=== PATIENT | female | born 1995 | race Caucasian/White ===

== ENCOUNTER → 2023-11-13 | Outpatient (REF) | payer OTHER | LOC: M SFHCWAGY 13:03 | PROVIDERS: ATTEND Nurse Practitioner Family | DX: Z12.4 Encounter for screening for malignant neoplasm of cervix (principal) ==

== ENCOUNTER 2024-02-05 16:28 | Inpatient (IN) | payer OTHER ==
[~2024-02-05] VITALS: Ht 170.2 cm; Wt 66.4 kg
[2024-02-05 17:47] LABS: BASO # 0.1 10^3/uL (0.0-0.2); EOS % 0.4 % (0.0-3.0); HEMATOCRIT 43.4 % (36.0-47.0); HEMOGLOBIN 14.7 g/dl (12.0-15.5); LYMPH # 2.8 10^3/uL (1.5-5.0); MEAN CORPUSCULAR HEMOGLOBIN 29.1 pg (27.0-33.0); MEAN CORPUSCULAR HGB CONC 33.9 g/dl (32.0-36.5); MEAN CORPUSCULAR VOLUME 85.8 fl (80.0-96.0); MONO # 0.9 10^3/uL (0.0-0.8); MONO % 10.2 % (2.0-8.0); NEUTROPHILS # 5.1 10^3/uL (1.5-8.5); NEUTROPHILS % 57.3 % (36.0-66.0); PLATELET COUNT, AUTOMATED 317 10^3/uL (150-450); RED BLOOD COUNT 5.06 10^6/uL (4.00-5.40); WHITE BLOOD COUNT 8.9 10^3/uL (4.0-10.0)
[2024-02-05 18:08] LABS: CK-MB VALUE MASS < 1.0 NG/ML (<3.6); ETHYL ALCOHOL (ETHANOL) < 0.003 % (0.000-0.010)
[2024-02-05 18:10] LABS: ALBUMIN 4.6 G/DL (3.2-5.2); ALKALINE PHOSPHATASE 77 U/L (46-116); ALT/SGPT 13 U/L (7.0-40); AST/SGOT 13 U/L (<34); BILIRUBIN,DIRECT 0.7 MG/DL (<0.4); BILIRUBIN,TOTAL 1.9 MG/DL (0.3-1.2); BLOOD UREA NITROGEN 10 MG/DL (9-23); CALCIUM LEVEL 9.5 MG/DL (8.5-10.1); CARBON DIOXIDE LEVEL 25 MMOL/L (20-31); CHLORIDE LEVEL 106 MMOL/L (98-107); CPK CREATINE PHOSPHOKINASE 114 U/L (34-145); CREATININE FOR GFR 0.84 MG/DL (0.55-1.30); GLOMERULAR FILTRATION RATE > 60.0 (>60); GLUCOSE, FASTING 102 MG/DL (60-100); MB/CK RELATIVE INDEX 0.87 (< OR =4); POTASSIUM SERUM 4.2 MMOL/L (3.5-5.1); SALICYLATE LEVEL < 3.0 MG/DL (<30); SODIUM LEVEL 141 MMOL/L (136-145); TOTAL PROTEIN 7.9 G/DL (5.7-8.2)
[2024-02-05 18:11] LABS: THYROID STIMULATING HORMONE 2.393 uIU/ML (0.55-4.78)
[2024-02-05 18:16] LABS: HCG, SERUM QUALITATIVE NEGATIVE (NEGATIVE)
[2024-02-05 18:18] LABS: AMPHETAMINES LEVEL URINE NEGATIVE (NEGATIVE); COCAINE METABOLITE URINE NEGATIVE (NEGATIVE)
[2024-02-05 18:19] LABS: BARBITURATES URINE NEGATIVE (NEGATIVE); BENZODIAZEPINES URINE NEGATIVE (NEGATIVE); CANNABINOIDS URINE NEGATIVE (NEGATIVE); METHADONE URINE NEGATIVE (NEGATIVE); OPIATES URINE NEGATIVE (NEGATIVE); PHENCYCLIDINE URINE NEGATIVE (NEGATIVE)
[2024-02-05] MEDS ORDERED: MOM 30ML SUSPENSION UDC PO PRN (21:40)
[2024-02-05] MEDS ORDERED: MAALOX 30 ML SUSP *UDC PO PRN (21:40)
[2024-02-05] MEDS ORDERED: HOME MED LIST COMPLETE! XX SCH (21:55)
[2024-02-05 23:30] VITALS: BP 126/76; O2SAT 98
[2024-02-06] MEDS: traZODone 50 MG TAB PO PRN (00:04)
[2024-02-06] MEDS: diphenhydrAMINE 25MG CAP PO PRN (01:19)
[2024-02-06 06:15] VITALS: BP 123/80
[2024-02-06] MEDS: OLANZapine 5 MG TAB PO SCH (20:39)
[2024-02-07 06:46] VITALS: BP 116/70; TEMP 98.2; O2SAT 99
[2024-02-07 18:24] VITALS: BP 123/80; TEMP 99.9; O2SAT 99
[2024-02-08 06:02] VITALS: BP 121/80; O2SAT 99
[2024-02-08 15:30] VITALS: BP 164/67; TEMP 98.7; O2SAT 98
[2024-02-09 06:24] VITALS: BP 119/74; O2SAT 95
[2024-02-09 10:04] LABS: CHOLESTEROL RISK RATIO 2.19 (<5); HDL CHOLESTEROL 59.6 MG/DL (>40); LDL CHOLESTEROL 58.4 MG/DL (<100); NON-HDL-C 71.4 MG/DL
[2024-02-09] MEDS: ACETAMINOPHEN TAB 650MG DOSE (2X325MG) PO PRN (12:04)
[2024-02-09 16:08] VITALS: BP 112/74; TEMP 98.9; O2SAT 98
[2024-02-10 06:24] VITALS: BP 100/67; TEMP 97.5; O2SAT 99
[2024-02-10 16:08] VITALS: BP 125/71; TEMP 98.6; O2SAT 100
[2024-02-10] MEDS: IBUPROFEN 400MG TAB PO PRN (16:39)
[2024-02-11 06:06] VITALS: BP 127/74; TEMP 97.6; O2SAT 99
[2024-02-11] MEDS ORDERED: OLAN1TAB16 PO (09:01)
== END 2024-02-11 12:55 | disposition home or self-care (01) | DRG 751 ==
LOC: M ED 16:28 → M ED INP 21:36 → M PSY 22:20
PROVIDERS: ADMIT Psychiatry & Neurology Child & Adolescent Psychiatry; ATTEND Psychiatry & Neurology Child & Adolescent Psychiatry
DX: F29 Unspecified psychosis not due to a substance or known physiological condition (principal); F31.9 Bipolar disorder, unspecified; F41.9 Anxiety disorder, unspecified; Z63.0 Problems in relationship with spouse or partner

== ENCOUNTER 2024-04-14 11:50 | Inpatient (IN) | payer MEDICAID, OTHER ==
[~2024-04-14] VITALS: Ht 170.2 cm; Wt 71.2 kg
[~2024-04-14 11:50] MED LIST: OLAN1TAB16 PO
[2024-04-14 12:34] LABS: HEMATOCRIT 41.6 % (36.0-47.0); HEMOGLOBIN 13.9 g/dl (12.0-15.5); MEAN CORPUSCULAR HEMOGLOBIN 29.1 pg (27.0-33.0); MEAN CORPUSCULAR HGB CONC 33.4 g/dl (32.0-36.5); MEAN CORPUSCULAR VOLUME 87.2 fl (80.0-96.0); PLATELET COUNT, AUTOMATED 274 10^3/uL (150-450); RED BLOOD COUNT 4.77 10^6/uL (4.00-5.40); WHITE BLOOD COUNT 7.4 10^3/uL (4.0-10.0)
[2024-04-14 12:58] LABS: AMPHETAMINES LEVEL URINE NEGATIVE (NEGATIVE)
[2024-04-14 12:59] LABS: BARBITURATES URINE NEGATIVE (NEGATIVE); BENZODIAZEPINES URINE NEGATIVE (NEGATIVE); COCAINE METABOLITE URINE NEGATIVE (NEGATIVE); METHADONE URINE NEGATIVE (NEGATIVE); OPIATES URINE NEGATIVE (NEGATIVE)
[2024-04-14 13:00] LABS: CANNABINOIDS URINE NEGATIVE (NEGATIVE); PHENCYCLIDINE URINE NEGATIVE (NEGATIVE)
[2024-04-14 13:02] LABS: ETHYL ALCOHOL (ETHANOL) < 0.003 % (0.000-0.010)
[2024-04-14 13:03] LABS: SALICYLATE LEVEL < 3.0 MG/DL (<30)
[2024-04-14 13:04] LABS: ALBUMIN 3.8 G/DL (3.2-5.2); ALKALINE PHOSPHATASE 92 U/L (46-116); ALT/SGPT 18 U/L (7.0-40); AST/SGOT 20 U/L (<34); BILIRUBIN,DIRECT 0.3 MG/DL (<0.4); BILIRUBIN,TOTAL 1.1 MG/DL (0.3-1.2); BLOOD UREA NITROGEN 11 MG/DL (9-23); CALCIUM LEVEL 9.1 MG/DL (8.5-10.1); CARBON DIOXIDE LEVEL 26 MMOL/L (20-31); CHLORIDE LEVEL 108 MMOL/L (98-107); CREATININE FOR GFR 0.72 MG/DL (0.55-1.30); GLOMERULAR FILTRATION RATE > 60.0 (>60); GLUCOSE, FASTING 87 MG/DL (60-100); POTASSIUM SERUM 4.4 MMOL/L (3.5-5.1); SODIUM LEVEL 140 MMOL/L (136-145); THYROID STIMULATING HORMONE 2.491 uIU/ML (0.55-4.78); TOTAL PROTEIN 7.2 G/DL (5.7-8.2)
[2024-04-14 13:52] LABS: HCG, SERUM QUALITATIVE NEGATIVE (NEGATIVE)
[2024-04-14] MEDS ORDERED: OLAN1TAB16 PO (14:48)
[2024-04-14] MEDS ORDERED: HOME MED LIST COMPLETE! XX SCH (14:50)
[2024-04-14] MEDS ORDERED: MAALOX 30 ML SUSP *UDC PO PRN (15:25)
[2024-04-14] MEDS ORDERED: ACETAMINOPHEN TAB 650MG DOSE (2X325MG) PO PRN (15:25)
[2024-04-14] MEDS ORDERED: MOM 30ML SUSPENSION UDC PO PRN (15:25)
[2024-04-14] MEDS ORDERED: IBUPROFEN 400MG TAB PO PRN (15:25)
[2024-04-14 18:26] VITALS: BP 124/87; TEMP 97.1; O2SAT 99
[2024-04-14] MEDS: OLANZapine 5 MG TAB PO ONE (20:33)
[2024-04-15 06:45] VITALS: BP 118/73; TEMP 98; O2SAT 96
[2024-04-15] MEDS: lamoTRIgine 25MG TAB PO SCH (10:48)
[2024-04-15 16:19] VITALS: BP 125/71; TEMP 98.7; O2SAT 96
[2024-04-15] MEDS: diphenhydrAMINE 25MG CAP PO PRN (19:00)
[2024-04-15 19:06] VITALS: BP 98/56; TEMP 98.6; O2SAT 97
[2024-04-15] MEDS ORDERED: OLANZapine 10 MG TAB PO SCH (21:00)
[2024-04-16 06:28] VITALS: BP 115/59; TEMP 98.4; O2SAT 98
[2024-04-16] MEDS: LORazepam 0.5 MG TAB PO ONE (11:54)
[2024-04-16 15:53] VITALS: BP 111/70; TEMP 98.9; O2SAT 98
[2024-04-16] MEDS: traZODone 50 MG TAB PO PRN (20:07)
[2024-04-17 06:35] VITALS: BP 127/58; TEMP 97.9; O2SAT 98
[2024-04-17 15:02] VITALS: BP 125/75; TEMP 98.7; O2SAT 97
[2024-04-18 06:30] VITALS: BP 107/64; TEMP 98.4; O2SAT 99
[2024-04-18 15:45] VITALS: BP 123/78; TEMP 98.2; O2SAT 97
[2024-04-18] MEDS: lamoTRIgine 25MG TAB PO SCH (20:17)
[2024-04-18] MEDS: ARIPiprazole 10 MG TAB PO SCH (20:17)
[2024-04-19 06:05] VITALS: BP 112/58; TEMP 98.4; O2SAT 98
[2024-04-19 16:05] VITALS: BP 133/86; TEMP 99; O2SAT 100
[2024-04-20 06:21] VITALS: BP 125/77; TEMP 98.3
[2024-04-20 16:03] VITALS: BP 110/70; TEMP 98.6; O2SAT 98
[2024-04-21 06:00] VITALS: BP 124/75; TEMP 98.4; O2SAT 97
[2024-04-21] MEDS: LORazepam 0.5 MG TAB PO ONE (14:09)
[2024-04-21 16:08] VITALS: BP 139/89; TEMP 98.7; O2SAT 95
[2024-04-22 06:38] VITALS: BP 120/76; TEMP 97.3; O2SAT 100
[2024-04-22] MEDS ORDERED: ABIL10TA9 PO (13:51)
[2024-04-22] MEDS ORDERED: TRAZ-252 PO (13:51)
[2024-04-22] MEDS ORDERED: HYDR-3363 PO (13:51)
[2024-04-22] MEDS ORDERED: LAMI25TA PO (13:51)
[2024-04-22] MEDS: OLANZapine ORAL DISINTEGRATING TAB 5MG PO PRN (14:23)
[2024-04-22 17:29] VITALS: BP 112/69; TEMP 99.6
[2024-04-23 06:23] VITALS: BP 109/74; TEMP 98.2; O2SAT 99
[2024-04-23] MEDS: clonazePAM 0.5 MG TAB PO SCH (09:37)
[2024-04-23] MEDS: FLUoxetine 20MG CAP PO SCH (09:37)
[2024-04-23 15:23] VITALS: BP 119/72; TEMP 98; O2SAT 96
[2024-04-23] MEDS ORDERED: ACETAMINOPHEN 325 MG TAB PO PRN (16:19)
[2024-04-24 07:07] VITALS: BP 107/69; TEMP 97.7; O2SAT 98
[2024-04-24 14:48] VITALS: BP 124/71; TEMP 99.4; O2SAT 96
[2024-04-25 06:22] VITALS: BP 127/74; TEMP 97.4; O2SAT 100
[2024-04-25] MEDS ORDERED: CLON0.5T2 PO (09:43)
[2024-04-25] MEDS ORDERED: FLUO-365 PO (09:59)
== END 2024-04-25 12:38 | disposition home or self-care (01) | DRG 751 ==
LOC: M ED 11:50 → M ED INP 15:24 → M PSY 17:03
PROVIDERS: ADMIT Psychiatry & Neurology Psychiatry; ATTEND Psychiatry & Neurology Psychiatry
DX: F33.9 Major depressive disorder, recurrent, unspecified (principal); G47.00 Insomnia, unspecified